=== PATIENT | male | born 1965 | race Caucasian/White ===

== ENCOUNTER 2017-03-05 20:45 | Emergency (ER) | payer BC ==
[2017-03-05 21:00] VITALS: BP 189/101; PULSE 99; TEMP 98.1; BMI 33.0
--- NOTE | 2017-03-05 21:03 | PDOC ---
History of Present Illness - General History Source: Patient Exam Limitations: No Limitations - History of Present Illness Initial Comments: 03/05/17 21:48 The patient is a 52 year old male, with a significant past medical history of diabetes, who presents to the emergency department with pain to the right big toe for approximately 1 week. The patient reports dropping a DJ speaker on his right big toe approximately 1 week ago. Since then, the patient reports going on vacation to [place]. While on vacation, patient reports noting associated pain, swelling, streaking, and nail started to detach from the nail bed. Patient reports he has also noted some drainage at the site of the injury. Patient denies any associated fever or chills. He denies any chest pain, shortness of breath, diaphoresis or palpitations. He denies any nausea or vomiting. Patient reports his diabetes is typically well controlled, but over the past week his sugars have been running high because he was on vacation. 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 Recently traveled to [place]. Non smoker. No ETOH or recreational drug use. MEDICATIONS: reviewed ALLERGIES: As per nursing notes General: No fevers or chills, no weakness, no weight loss HEENT: No change in vision. No sore throat,. No ear pain CardioVascular: No chest pain or shortness of breath Respiratory:No cough, or wheezing. Gastrointestinal: No nausea, vomiting, diarrhea or constipation, No rectal bleeding Genitourinary: No dysuria, hematuria, or frequency Musculoskeletal: Yes right big toe pain, swelling, and streaking. No joint or muscle pain or swelling Neurologic: No headache, vertigo, dizziness or loss of consciousness Psychiatric: No depression Skin: Yes right big toenail detaching from nail bed with discharge . No rashes or easy bruising Endocrine: No increased thirst or abnormal weight change Allergic: No skin or latex allergy All other systems reviewed and normal GENERAL: The patient is awake, alert, and fully oriented, in no acute distress. HEAD: Normal with no signs of trauma. EYES: Pupils equal, round and reactive to light, extraocular movements intact, sclera anicteric, conjunctiva clear. EXTREMITIES: Normal range of motion, no edema. NEUROLOGICAL: Normal speech, normal gait. PSYCH: Normal mood, normal affect. SKIN: Increased warmth to the right foot extending to the knee with erythema of the foot and marked swelling of the great toe with a palpable collection of fluid under the toenail within the distal phalanx of the toe. Right 2nd toe erythema with some maceration of the skin medially and edema. <Amilcar Melendez - Last Filed: 03/05/17 21:48> - General History Source: Patient Exam Limitations: No Limitations - History of Present Illness Initial Comments: 03/06/17 00:20 A portion of this note was documented by scribe services under my direction. I have reviewed the details of the note, within reason, and agree with the documentation. The case summary and management plan written by me. Assessment and plan: This is a 52-year-old male who comes in complaining of infection in his second toe. Patient is a diabetic and injured the toe approximately one week ago. Patient denies any fevers or chills. Patient says his sugars have been high because he was in [place] and wasn't eating healthy. Patient had a workup including a CAT scan of the foot that does show a probable osteomyelitis of the first toe. Patient did not have any drainable collections of the foot. However given the fact that he has a glucose over 400, a osteomyelitis of the foot he needs to be admitted for IV antibiotics. Patient was given thank and Zosyn here in the emergency room IV. Patient does not want to stay and be admitted and has requested to sign out AGAINST MEDICAL ADVICE. Patient is a EMT and understands that by signing out AGAINST MEDICAL ADVICE that he is at risk for worsening infection, sepsis and loss of his foot or life. 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 <Alvarez Katz I - Last Filed: 03/06/17 00:26> - General Chief Complaint: Redness To Affected Area Stated Complaint: RIGHT BIG TOE PAIN Time Seen by Provider: 03/05/17 20:52 Past History <Amilcar Melendez - Last Filed: 03/05/17 21:48> - Past Medical History Diabetes: Yes - Suicide/Smoking/Psychosocial Hx Smoking History: Never smoked Have you smoked in the past 12 months: No Information on smoking cessation initiated: No Hx Alcohol Use: No Drug/Substance Use Hx: No <Alvarez Katz I - Last Filed: 03/06/17 00:26> - Past Medical History Allergies/Adverse Reactions: Allergies Allergy/AdvReac Type Severity Reaction Status Date / Time No Known Allergies Allergy Verified 03/05/17 20:50 Home Medications: Ambulatory Orders Glipizide [Glucotrol] 5 mg PO BID 03/05/17 *Physical Exam - Vital Signs Last Vital Signs Temp Pulse Resp BP Pulse Ox 98.1 F 99 H 18 189/101 100 03/05/17 20:45 03/05/17 20:45 03/05/17 20:45 03/05/17 20:45 03/05/17 20:45 <Amilcar Melendez - Last Filed: 03/05/17 21:48> - Vital Signs Last Vital Signs Temp Pulse Resp BP Pulse Ox 98.1 F 99 H 18 189/101 100 03/05/17 20:45 03/05/17 20:45 03/05/17 20:45 03/05/17 20:45 03/05/17 20:45 <Alvarez Katz I - Last Filed: 03/06/17 00:26> ED Treatment Course - LABORATORY CBC & Chemistry Diagram: 03/05/17 22:10 03/05/17 22:10 <Alvarez Katz I - Last Filed: 03/06/17 00:26> *DC/Admit/Observation/Transfer - Attestations Scribe Attestion: 03/05/17 21:48 Documentation prepared by Amilcar Melendez, acting as medical screener for Alvarez Katz MD. <Amilcar Melendez - Last Filed: 03/05/17 21:48> <Alvarez Katz I - Last Filed: 03/06/17 00:26> Diagnosis at time of Disposition: Hyperglycemia Osteomyelitis Qualifiers: Osteomyelitis type: unspecified type Osteomyelitis location: foot Laterality: right Qualified Code(s): M86.9 - Osteomyelitis, unspecified; M86.9 - Osteomyelitis, unspecified; M86.9 - Osteomyelitis, unspecified - Discharge Dispostion Disposition: AGAINST MEDICAL ADVICE Condition at time of disposition: Stable - Patient Instructions Additional Instructions: You are leaving AGAINST MEDICAL ADVICE. By leaving AGAINST MEDICAL ADVICE you understand that you were infection could worsen, you could develop sepsis that could result in loss of your foot or loss of your life. Return to the emergency department immediately with ANY new, persistent or worsening symptoms. Continue any medications as previously prescribed by your physician. You should follow up with your primary doctor as soon as possible regarding today's emergency department visit. . Please make sure your doctor reviews the results of your emergency evaluation. Thank you for coming to the Emergency Department today for your care. It was a pleasure to see you today. Please note that your evaluation is INCOMPLETE until you follow-up with your doctor.
[2017-03-05 22:35] LABS: ALBUMIN 4.2 g/dl (3.5-5.0); ALK PHOS 118 U/L (32-92); ANION GAP 10 (8-16); BILIRUBIN,TOTAL 0.7 mg/dl (0.2-1.0); CALCIUM 9.5 mg/dl (8.4-10.2); CO2 29 mmol/L (22-28); CREATININE 0.9 mg/dl (0.6-1.3); SGOT/AST 19 U/L (10-42); SGPT/ALT 24 U/L (10-40); TOT PROT 7.7 g/dl (6.4-8.3)
[2017-03-05 22:36] LABS: EOSINOPHIL 3.2 % (0-4.5); MCH 30.9 pg (25.7-33.7); MCHC 34.4 g/dl (32.0-35.9); MEAN CELL VOLUME 89.8 fl (80-96); MEAN PLT VOLUME 7.4 fl (7.5-11.1); NEUTROPHILS 65.2 % (42.8-82.8); PLATELET COUNT 202 K/MM3 (134-434); RDW 11.5 % (11.9-15.9); WHITE BLOOD COUNT 5.1 K/mm3 (4.0-10.8)
[2017-03-05] MEDS ORDERED: PIPERACILLIN/TAZOB 3.375 GM/50 ML PRE-DOCKED IVPB STA (22:40)
[2017-03-05] MEDS ORDERED: VANCOMYCIN 1,000 MG in DEXTROSE 5%-WATER - 250 ML IVPB STA (22:41)
[2017-03-05 22:42] LABS: GLUCOSE,RANDOM 432 mg/dl (74-106)
[2017-03-05] MEDS ORDERED: SODIUM CHLORIDE 1,000 ML IV ONE (22:43)
[2017-03-05] MEDS ORDERED: INSULIN REGULAR HUMAN 100 UNITS/ML *VIAL IVPUSH ONE (22:44)
[2017-03-05] MEDS ORDERED: VANCOMYCIN 1,000 MG VIAL (RESTRICTED TO ID ONLY) ONE (22:48)
[2017-03-05] MEDS ORDERED: PIPERACILLIN/TAZOBACTAM 3.375 GM VIAL IVPB ONE (22:49)
[2017-03-05] MEDS ORDERED: INSULIN REGULAR HUMAN 100 UNITS/ML *VIAL ONE (22:51)
[2017-03-05] MEDS: ASPIRIN 81 MG CHEWABLE TABLETS PO ONE ×2 (23:27→23:28)
[2017-03-06] MEDS ORDERED: HEMOQUE TEST 1 EACH EACH ONE (00:27)
== END 2017-03-06 01:03 | disposition left against medical advice (07) ==
LOC: FER 20:45
PROC: 3E033VG Introduction of Insulin into Peripheral Vein, Percutaneous Approach (ICD-10-PCS; principal; 2017-03-05)
PROC: 3E03329 Introduction of Other Anti-infective into Peripheral Vein, Percutaneous Approach (ICD-10-PCS; 2017-03-05)
PROC: 3E033GC Introduction of Other Therapeutic Substance into Peripheral Vein, Percutaneous Approach (ICD-10-PCS; 2017-03-05)
PROC: 3E0337Z Introduction of Electrolytic and Water Balance Substance into Peripheral Vein, Percutaneous Approach (ICD-10-PCS; 2017-03-05)
DX: M86.9 Osteomyelitis, unspecified (principal); E11.9 Type 2 diabetes mellitus without complications
CPT/HCPCS: 36415; 73660-TC; 73700-TC-RT; 80053; 85025; 87040; 99282-25

== ENCOUNTER 2021-12-04 07:44 | Day surgery (SDC) | payer BC ==
[2021-11-29 13:26] VITALS: BMI 33.0
[2021-12-04] MEDS: OFLOXACIN 0.3% OPHTHALMIC SOLUTION 5 ML BOTTLE OD SCH ×3 (08:15→08:25)
[2021-12-04] MEDS: TROPICAMIDE 1% OPHTH SOLN 15 ML BOTTLE OD SCH ×3 (08:15→08:25)
[2021-12-04] MEDS: PHENYLEPHRINE 2.5% OPHTH SOLN 15 ML BOTTLE OD SCH ×3 (08:15→08:25)
[2021-12-04] MEDS: KETOROLAC TROMETHAMINE 0.5% EYE DROP 1 DROP DROPS OD SCH ×3 (08:15→08:25)
[2021-12-04] MEDS: CYCLOPENTOLATE HCL 1% OPHTH SOLN 2 ML BOTTLE OD SCH ×3 (08:15→08:25)
[2021-12-04] MEDS ORDERED: EPI-SHUGARCAINE (EPINEPHRINE 0.025% & LIDOCAINE-PF 0.75%) 4ML ONE (08:46)
[2021-12-04] MEDS ORDERED: POVIDONE-IODINE 5% OPHTHALMIC PREP 30 ML SOLUTION ONE (08:46)
[2021-12-04] MEDS ORDERED: ACETYLCHOLINE 1:100 INTRA-OCUL 20 MG/2 ML KIT ONE (08:46)
[2021-12-04] MEDS ORDERED: BACITRACIN/POLYMYXIN OPH OINT 3.5 GM TUBE ONE (08:46)
[2021-12-04] MEDS ORDERED: BETAXOLOL HCL 0.25% OPHTHALMIC 10 ML DROPSBTL ONE (08:46)
[2021-12-04] MEDS ORDERED: TETRACAINE 0.5% OPHTH SOLN 2 ML BOTTLE ONE (08:46)
[2021-12-04] MEDS ORDERED: NEO/POLYMYX B SULF/DEXAMETH OPHTHALMIC 5ML BOTTLE ONE (08:46)
[2021-12-04] MEDS ORDERED: BSS (NA/CA/MG/K) BALANCED SALT SOLUTION OPHTH SOLN 15 ML BOTTLE ONE (08:46)
[2021-12-04] MEDS ORDERED: MIDAZOLAM HCL 2 MG/2 ML SINGLE DOSE VIAL ONE (09:19)
[2021-12-04] MEDS ORDERED: ACETAMINOPHEN 325 MG TABLET (FP) PO PRN (09:42)
[2021-12-04 09:59] VITALS: TEMP 97.1
[2021-12-04 10:17] VITALS: BP 105/71; PULSE 73
== END 2021-12-04 10:45 | disposition home or self-care (01) ==
LOC: FASU 07:44
PROVIDERS: ATTEND Ophthalmology
PROC: 08RJ3JZ Replacement of Right Lens with Synthetic Substitute, Percutaneous Approach (ICD-10-PCS; principal; 2021-12-04 09:24)
DX: H25.11 Age-related nuclear cataract, right eye (principal)
CPT/HCPCS: 66984; V2632; 82962

== ENCOUNTER 2022-01-15 06:34 | Day surgery (SDC) | payer BC, OTHER ==
[2021-12-04 12:57] VITALS: BMI 33.0
[~2022-01-15 06:34] MED LIST: CYCLOPENTOLATE HCL 1% OPHTH SOLN 2 ML BOTTLE OS SCH; KETOROLAC TROMETHAMINE 0.5% EYE DROP 1 DROP DROPS OS SCH; OFLOXACIN 0.3% OPHTHALMIC SOLUTION 5 ML BOTTLE OS SCH; PHENYLEPHRINE 2.5% OPHTH SOLN 15 ML BOTTLE OS SCH; TROPICAMIDE 1% OPHTH SOLN 15 ML BOTTLE OS SCH
[2022-01-15] MEDS: KETOROLAC TROMETHAMINE 0.5% EYE DROP 1 DROP DROPS OS SCH ×3 (06:45→06:55)
[2022-01-15] MEDS: CYCLOPENTOLATE HCL 1% OPHTH SOLN 2 ML BOTTLE OS SCH ×2 (06:45→06:55)
[2022-01-15] MEDS: PHENYLEPHRINE 2.5% OPHTH SOLN 15 ML BOTTLE OS SCH ×2 (06:45→06:50)
[2022-01-15] MEDS: TROPICAMIDE 1% OPHTH SOLN 15 ML BOTTLE OS SCH ×3 (06:45→06:55)
[2022-01-15] MEDS ORDERED: OFLOXACIN 0.3% OPHTHALMIC SOLUTION 5 ML BOTTLE OS ONE ×2 (06:50→06:55)
[2022-01-15] MEDS ORDERED: CYCLOPENTOLATE HCL 1% OPHTH SOLN 2 ML BOTTLE OS ONE (06:50)
[2022-01-15] MEDS ORDERED: PHENYLEPHRINE 2.5% OPHTH SOLN 15 ML BOTTLE OS ONE (06:55)
[2022-01-15 07:16] VITALS: RESP 18
[2022-01-15] MEDS ORDERED: BETAXOLOL HCL 0.25% OPHTHALMIC 10 ML DROPSBTL ONE (07:21)
[2022-01-15] MEDS ORDERED: EPI-SHUGARCAINE (EPINEPHRINE 0.025% & LIDOCAINE-PF 0.75%) 4ML ONE (07:21)
[2022-01-15] MEDS ORDERED: PHENYLEPHRINE/KETOROLAC 4 ML VIAL IO ONE (07:21)
[2022-01-15] MEDS ORDERED: TETRACAINE 0.5% OPHTH SOLN 2 ML BOTTLE ONE (07:21)
[2022-01-15] MEDS ORDERED: BACITRACIN/POLYMYXIN OPH OINT 3.5 GM TUBE ONE ×2 (07:21→07:28)
[2022-01-15] MEDS ORDERED: BSS (NA/CA/MG/K) BALANCED SALT SOLUTION OPHTH SOLN 15 ML BOTTLE ONE (07:22)
[2022-01-15] MEDS ORDERED: NEO/POLYMYX B SULF/DEXAMETH OPHTHALMIC 5ML BOTTLE ONE (07:22)
[2022-01-15] MEDS ORDERED: POVIDONE-IODINE 5% OPHTHALMIC PREP 30 ML SOLUTION ONE (07:22)
[2022-01-15] MEDS ORDERED: ACETYLCHOLINE 1:100 INTRA-OCUL 20 MG/2 ML KIT ONE (07:22)
[2022-01-15] MEDS ORDERED: EPINEPHrine/PF 1 MG/1 ML (1:1,000) AMPULE ONE (07:28)
[2022-01-15] MEDS ORDERED: KETOROLAC TROMETHAMINE 30 MG/1 ML VIAL ONE (07:59)
[2022-01-15] MEDS ORDERED: MIDAZOLAM HCL 2 MG/2 ML SINGLE DOSE VIAL ONE (07:59)
[2022-01-15] MEDS ORDERED: OFLOXACIN 0.3% OPHTHALMIC SOLUTION 5 ML BOTTLE OS SCH (08:00)
[2022-01-15] MEDS ORDERED: ACETAMINOPHEN 325 MG TABLET (FP) PO PRN (08:27)
[2022-01-15 08:36] VITALS: TEMP 97.6
[2022-01-15 09:01] VITALS: BP 156/81; PULSE 84
== END 2022-01-15 09:55 | disposition home or self-care (01) ==
LOC: FASU 06:34
PROVIDERS: ATTEND Ophthalmology
PROC: 08RK3JZ Replacement of Left Lens with Synthetic Substitute, Percutaneous Approach (ICD-10-PCS; principal; 2022-01-15 08:08)
DX: H25.12 Age-related nuclear cataract, left eye (principal)
CPT/HCPCS: 66984; V2632; J1097